=== PATIENT | female | born 1965 | race Caucasian/White ===

== ENCOUNTER 2018-10-13 09:32 | Emergency (ER) | payer BC ==
[2018-10-13 09:55] VITALS: BP 126/84
[2018-10-13] MEDS ORDERED: Albuterol 2.5 MG/3 ML NEB.SOL* (0.083%) INH ONE (10:16)
[2018-10-13] MEDS ORDERED: predniSONE TAB* 20 MG PO ONE (10:16)
--- NOTE | 2018-10-13 10:20 | UC ---
UC General HPI - HPI Summary HPI Summary: became ill friday. n/v at onset followed by diarrhea both of which have resolved but has fever, chills, bodyaches along with cough, congestion, sob and wheezing. has a hx of asthma. 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 + flu shot. - History of Current Complaint Chief Complaint: UCRespiratory Stated Complaint: COUGH CONGESTION WHEEZING Time Seen by Provider: 10/13/18 10:11 Hx Obtained From: Patient Timing: Constant Pain Intensity: 5 Alleviating: nothing Associated Signs & Symptoms: Negative: Abdominal Pain, Chest Pain - Allergy/Home Medications Allergies/Adverse Reactions: Allergies Allergy/AdvReac Type Severity Reaction Status Date / Time ibuprofen Allergy Hives Verified 10/13/18 09:49 ketorolac [From Toradol] Allergy Hives Verified 10/13/18 09:49 magnesium hydroxide Allergy Swelling Verified 10/13/18 09:49 [From Milk of Magnesia] magnesium hydroxide Allergy Swelling Verified 10/13/18 09:49 [From Milk of Magnesia] psyllium [From Metamucil] Allergy "Respiratory Verified 10/13/18 09:49 Failure" Home Medications: Home Medications Acetaminophen [Acetaminophen Extra Strength] 1,000 mg PO Q6H PRN 10/13/18 [ History Confirmed 10/13/18] Albuterol HFA INHALER* [Ventolin HFA Inhaler*] 1 - 2 puff INH Q4H PRN 10/13/18 [ History Confirmed 10/13/18] PMH/Surg Hx/FS Hx/Imm Hx Respiratory History: Asthma - Surgical History Surgical History: Yes Surgery Procedure, Year, and Place: Perirectal Abscess, Right Knee (Meniscus) Arthroscopies, Hysterectomy, Tonsillectomy - Family History Known Family History: Positive: Non-Contributory - Social History Occupation: Employed Full-time Alcohol Use: Rare Substance Use Type: None Smoking Status (MU): Never Smoked Tobacco - Immunization History Vaccination Up to Date: Yes Review of Systems All Other Systems Reviewed And Are Negative: Yes Constitutional: Positive: Chills Skin: Positive: Negative Eyes: Positive: Negative ENT: Positive: Negative Cardiovascular: Positive: Negative Gastrointestinal: Negative: Abdominal Pain Genitourinary: Positive: Negative Motor: Positive: Negative Neurovascular: Positive: Negative Musculoskeletal: Positive: Myalgia Neurological: Positive: Negative Psychological: Positive: Negative Is Patient Immunocompromised?: No Physical Exam Triage Information Reviewed: Yes Appearance: Ill-Appearing - but non toxic Vital Signs: Initial Vital Signs Temp 99.3 F 10/13/18 09:46 Pulse 115 10/13/18 09:46 Resp 18 10/13/18 09:46 BP 126/84 10/13/18 09:46 Pulse Ox 99 10/13/18 09:46 Vital Signs Reviewed: Yes Eyes: Positive: Conjunctiva Clear ENT: Positive: Pharynx normal, TMs normal. Negative: Nasal congestion, Nasal drainage Neck: Positive: Supple, Nontender, No Lymphadenopathy Respiratory: Positive: Lungs clear, No respiratory distress, Decreased breath sounds, Other: - bronchospastic-congested cough. Cardiovascular: Positive: RRR - rate=96, No Murmur Abdomen Description: Positive: Nontender, No Organomegaly, Soft Bowel Sounds: Positive: Present Musculoskeletal: Positive: ROM Intact Neurological: Positive: Alert Psychological: Positive: Normal Response To Family, Age Appropriate Behavior Skin Exam: Normal Diagnostics - Laboratory Diagnostic Studies Completed/Ordered: Rapid flu is neg Re-Evaluation - Re-Evaluation First Eval Re-Evaluation Time: 11:11 Change: Improved - pt feels breathing is easier and less cough. aeration unchanged. Course/Dx - Course Course Of Treatment: rapid flu neg; however, given exposure plus s/s's is c/w CESIA and asthma. pt declining cxr to r/o pneumonia. will give tamiflu given her hx asthma. - Differential Dx - Multi-Symptom Differential Diagnoses: Other - viral syndrom/influenza, CESIA, asthma, pneumonia - Diagnoses Provider Diagnosis: Influenza-like illness, Asthma Discharge - Sign-Out/Discharge Documenting (check all that apply): Patient Departure All imaging exams completed and their final reports reviewed: No Studies - Discharge Plan Condition: Stable Disposition: HOME Prescriptions: Albuterol HFA INHALER* [Ventolin HFA Inhaler*] 2 puff INH Q6H #1 mdi Oseltamivir CAP* [Tamiflu CAP*] 75 mg PO BID 5 Days #10 cap predniSONE [Prednisone 20 MG TAB] 40 mg PO DAILY 4 Days #8 tablet Patient Education Materials: Influenza (ED) Forms: *Work Release Referrals: Mey Rosenthal MD [Primary Care Provider] - 7 Days - Billing Disposition and Condition Condition: STABLE Disposition: Home
== END 2018-10-13 11:26 | disposition home or self-care (01) ==
LOC: UCCORT 09:32
DX: J45.909 Unspecified asthma, uncomplicated (principal); J11.1 Influenza due to unidentified influenza virus with other respiratory manifestations; Z20.828 Contact with and (suspected) exposure to other viral communicable diseases; Z88.6 Allergy status to analgesic agent; Z88.8 Allergy status to other drugs, medicaments and biological substances
CPT/HCPCS: 99202; G0463; J7512